=== PATIENT | male | born 2000 | race Caucasian/White ===

== ENCOUNTER 2022-09-25 20:02 | Emergency (ER) | payer BC, MEDICAID, OTHER ==
[~2022-09-25] VITALS: Ht 185.4 cm; Wt 100.0 kg
[2022-09-25 20:07] VITALS: BP 135/99
[2022-09-25] MEDS ORDERED: proparacaine 0.5% ophthalmic drops 15ml EACHEYE ONE (21:30)
== END 2022-09-25 22:43 | disposition home or self-care (01) ==
LOC: ER 20:04
DX: T15.91XA Foreign body on external eye, part unspecified, right eye, initial encounter (principal); H57.11 Ocular pain, right eye; X58.XXXA Exposure to other specified factors, initial encounter; Y93.89 Activity, other specified; Y92.89 Other specified places as the place of occurrence of the external cause; Y99.8 Other external cause status
CPT/HCPCS: 65205; 99283; 99284